=== PATIENT | female | born 1955 | race Caucasian/White ===

== ENCOUNTER 2017-01-04 16:56 | Emergency (ER) | payer BC ==
[~2017-01-04 16:56] MED LIST: ACTOS PO; ALBUTEROL17 GM INH; AMLODIPINE BESYL5 MG PO; ANTIVERT PO; AUGMENTIN PO; BENICAR HCT 40-1 TA1 PO; BENICAR HCT 40-1 TAB PO; BENZONATATE PO; BLOOD PRESSURE MED; CIPRO250 MG PO; DEXILANT60 MG PO; FISH OIL 1,001000 MG PO; FLEXERIL10 MG PO; GLUCOVANCE 2.5-1 TAB PO; GLUCOVANCE 2.5/1 TA1 PO; GLUCOVANCE PO; GLYBURIDE-METFO1 TA3 PO; GUAIFENESIN600 MG PO; IMITREX; JANUVIA PO; LIPITOR PO; LIPITOR40 MG PO; LODINE400 MG PO; LORTAB 10-5001 EACH PO; MEDROL PO; MICROZIDE12.5 M1 PO; NEXIUM PO; NORVASC PO; PERCOCET 5-3251 TAB PO; PHENERGAN PO; PHENERGAN W/CO120 ML PO; PHENERGAN25 M1 PO; PRILOSEC40 MG PO; PRINIVIL40 MG PO; PROMETHAZINE-D240 ML PO; PROZAC PO; SINGULAIR PO; SLEEP AID50 MG PO; VIBRAMYCIN100 M1 PO; ZEGERID40 MG/PKT PO; ZOFRAN8 MG PO
[2017-01-04] MEDS ORDERED: ACTOS (17:03)
[2017-01-04 17:30] LABS: MICRO INDICATED? YES; URINE APPEARANCE CLEAR; URINE BILIRUBIN NEG (NEG); URINE BLOOD 2+ (NEG); URINE COLOR YELLOW; URINE GLUCOSE NEG (NORM); URINE KETONE NEG (NEG); URINE LEUKOCYTE ESTERASE 2+ (NEG); URINE NITRATE NEG (NEG); URINE PROTEIN NEG (NEG); URINE SOURCE CLEAN CATCH
[2017-01-04 17:31] LABS: URINE WBC 25-50 /[HPF] (0-5)
[2017-01-04 17:32] LABS: CULTURE INDICATED? YES; URINE BACTERIA 3+ (NEG); URINE SQUAMOUS EPITHELIAL CELL FEW /[HPF]
== END 2017-01-04 18:03 | disposition home or self-care (01) ==
LOC: SED 16:56
PROVIDERS: Emergency Medicine
DX: N30.90 Cystitis, unspecified without hematuria (principal); K21.9 Gastro-esophageal reflux disease without esophagitis; I10 Essential (primary) hypertension; Z98.51 Tubal ligation status; Z88.2 Allergy status to sulfonamides; Z88.5 Allergy status to narcotic agent
CPT/HCPCS: 81003; 87086; 87088; 87186; 99283